=== PATIENT | female | born 1995 | race Caucasian/White ===

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

== ENCOUNTER 2018-02-13 16:32 | Outpatient (CLI) | END 2018-02-13 21:08 | disposition home or self-care (01) ==

== ENCOUNTER 2018-03-08 23:25 | Outpatient (CLI) | END 2018-03-09 03:52 | disposition home or self-care (01) ==

== ENCOUNTER 2018-03-13 22:03 | Outpatient (CLI) | END 2018-03-14 00:41 | disposition home or self-care (01) ==

== ENCOUNTER 2018-04-08 15:25 | Outpatient (CLI) | END 2018-04-08 16:53 | disposition home or self-care (01) ==